=== PATIENT | female | born 2005 | race Caucasian/White ===

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

== ENCOUNTER 2024-04-27 21:00 | Outpatient (REF) | payer BC, SELFPAY ==
[2024-04-29 13:53] LABS: Bacterial Vaginosis (BV) Negative (Negative); Candida glabrata Negative (Negative); Candida species group Positive (Negative); Trichomonas vaginalis Negative (Negative)
[2024-04-29 16:11] LABS: Chlamydia Result Negative (Negative); GC Result Negative (Negative)
== END 2024-04-27 21:01 | disposition home or self-care (01) ==
LOC: LBN 21:00
PROVIDERS: PCP Nurse Practitioner Family; Visit Provider Nurse Practitioner Family
DX: N76.0 Acute vaginitis (principal); R11.2 Nausea with vomiting, unspecified
CPT/HCPCS: 81513; 87481; 87491; 87591; 87661